=== PATIENT | female | born 1970 | race Native Hawaiian/Other Pacific Islander ===

== ENCOUNTER 2022-11-24 09:21 | Outpatient (CLI) | payer BC | END 2022-11-24 21:26 | disposition home or self-care (01) | LOC: US 09:21 | PROVIDERS: ATTEND Internal Medicine Rheumatology | DX: E83.52 Hypercalcemia (principal); L40.50 Arthropathic psoriasis, unspecified; R31.9 Hematuria, unspecified; Z79.899 Other long term (current) drug therapy | CPT/HCPCS: 36415; 82668; 83970 ==